=== PATIENT | female | born 1980 | race African-American/Black ===

== ENCOUNTER 2020-04-05 10:12 | Emergency (ER) | payer OTHER ==
[~2020-04-05] VITALS: Ht 154.9 cm; Wt 95.3 kg
[2020-04-05] MEDS ORDERED: VALTREX 500 MG500 M1 PER TUBE (11:22)
[2020-04-05] MEDS ORDERED: PREDNISONE 10 M10 M1 PO (11:22)
[2020-04-05 11:42] VITALS: BP 119/66
== END 2020-04-05 11:43 | disposition home or self-care (01) ==
LOC: ER 10:12
DX: G51.0 Bell's palsy (principal)